=== PATIENT | male | born 1970 | race Caucasian/White ===

== ENCOUNTER 2017-07-20 09:21 | Emergency (ER) | payer MEDICAID, SELFPAY ==
[2017-07-20 09:22] VITALS: BP 177/102; PULSE 93; RESP 14; TEMP 36.9; O2SAT 99; BMI 34.5
--- NOTE | 2017-07-20 09:50 | ED.VISSUMM ---
- ER Visit Summary Date of Service: 07/20/17 Chief Complaint: Nausea and vomiting in the morning only for a couple of months now complaining of right upper quadrant pain and right scapular pain History of Present Illness: The patient is a 46 M who has a past medical history of diabetes ?15 years, hypertension, hypertriglyceridemia and remote history of pancreatitis. He has had intermittent nausea and vomiting in the morning only for the past 2-3 months. He has not noted any blood or coffee grounds in his emesis. His last bowel movement was 3 days ago. He denies weight gain or weight loss. He has had intermittent night sweats. He denies any arthralgias, myalgias or bone pain. He has complained of right scapular pain and right upper quadrant pain the past couple of days. He last ate 2 hours ago and had ranch dressing on his salad. He does not recall his last A1c level. He states he checks his blood sugar 6-7 times a day. He reports intermittent dark urine. Significant other states he had blood in his urine approximately 1 month ago. There is no history of renal ureterolithiasis. He denies any ocular, visual or auditory symptoms. He denies any cardiac or respiratory symptoms. He denies polyuria, polydipsia or polyphagia. There is no family history of biliary disease. He has no history of hepatitis. Thought pancreatitis that was diagnosed 10 years ago was secondary to high triglycerides, 7500+ Physical Examination: Vital signs remarkable for blood pressure 177/102. Vital signs are otherwise unremarkable. BMI is 34.6. HEENT exam is remarkable dry mucosa. Heart is regular without murmur, gallop or rub. S1 and S2 are normal. Lungs are clear to auscultation with good movement of air bilaterally. Abdomen is remarkable for right upper quadrant pain with equivocal clinical Hui sign. There is no evidence of incarcerated hernia. There are no dermatologic lesions noted. There is no CVA tenderness noted. There is no pain to palpation of the right shoulder or scapula or pain with movement. Main nerve exam is unremarkable. Please read written note for complete detail. Test Results: CBC is unremarkable. BMP is remarkable glucose of 180 and a diabetic. Hepatic and lipase are unremarkable other than a alkaline phosphatase of 129 which is slightly elevated. UA is remarkable for ketones. Emergency Department Course and Treatment: IV was established she received 1 L normal saline. Because he has history of diabetes for 15 years and this may represent gastroparesis Reglan 10 mg IV push was administered. Because he has right upper quadrant pain with pain referred to his right scapula and reports intolerance to greasy/fried foods a hepatic and lipase were obtained. BMP was obtained to assess BUN/creatinine. Since he ate hours ago ultrasound will be nondiagnostic and reason not ordered. Treatment Plan: Patient reports significant improvement after Reglan. Plan is to discharge with prescription for Reglan and follow-up with PCP. Disposition: Discharged to home Impression: 1. Chronic nausea and vomiting suspect gastroparesis secondary diabetes 2. Hyperglycemia in a type II diabetic 3. Chronic abdominal/right-sided back pain of uncertain etiology 4. History of hypertension 5. History of pancreatitis This note was generated with [employer] dictation software. It may contain incorrect words, spelling, and punctuation that were not noted in review of the chart prior to signing ED Disposition - Plan for ED Patient: Disposition: Home or Assisted Living Chief Complaint: Nausea/Vomiting Instructions: ED Diabetic Gastroparesis Prescriptions: Metoclopramide [Reglan] 10 mg PO 4X/DAY PRN #120 tab PRN Reason: Headache Referrals: Armando Riley MD [Primary Care Provider] - 1 Week Additional Instructions: Your prescription was electronically transmitted to your preferred pharmacy.
[2017-07-20 09:53] LABS: Bacteria 0 SEEN /hpf (None Seen); Mucous, Urine 0 SEEN /hpf (<or=2+); Red Blood Cells-Urine 0 SEEN /hpf (0-5); Squamous Epithelial Cells - UA 0 SEEN /hpf (0-5); White Blood Cells 0 SEEN /hpf (0-5)
[2017-07-20] MEDS: 0.9% Normal Saline 1,000 ML 1000 ML IV (09:54)
[2017-07-20] MEDS: Metoclopramide 10 MG/2 ML Vial IV (09:54)
[2017-07-20 09:56] LABS: Color, Urine Yellow (Yellow); Glucose, Dipstick 50 mg/dl (Normal); Ketone-Dipstick Negative (Negative); Leukocyte Esterase-Dipstick Negative /ul (Negative); Nitrite-Dipstick Negative (Negative); Occult Blood-Urine Negative /ul (Negative); Protein-Dipstick Negative (Negative); Urine Bilirubin Dipstick Negative (Negative); Urine Clarity Clear (Clear); Urine Urobilinogen Normal (Normal)
[2017-07-20 10:13] LABS: AST(SGOT) 27 U/L (15-37); Alanine Aminotransfer ALT/SGPT 33 U/L (16-61); Albumin, Serum 4.1 g/dL (3.2-5.0); Alkaline Phosphatase 129 U/L (45-117); Anion Gap 9 (5-15); BUN 12 mg/dL (7-18); Bilirubin, Direct 0.14 mg/dL (0.00-0.30); Calcium,Total 8.7 mg/dL (8.5-10.1); Chloride 104 mmol/L (98-107); Creatinine, Serum 0.92 mg/dL (0.70-1.30); EST Glomerular Filtration Rate 93 mL/min (>60); Est Glom Filt Rate - Afr Amer 113 mL/min (>60); Globulin 3.4 g/dL (2.2-4.2); Glucose 180 mg/dL (74-106); Lipase 39 U/L (73-393); Protein, Total 7.5 g/dL (6.4-8.2); Sodium Level 140 mmol/L (136-145)
[2017-07-20 10:54] LABS: Absolute Lymphocyte Count 3.67 X10^3/ul (0.83-4.51); Absolute Neutrophil Count 4.7 X10^3/uL (2.0-7.7); Basophil# 0.03 X10^3/uL; Basophil% 0.3 % (0-1); Eosinophil# 0.58 X10^3/uL; Eosinophils% 5.9 % (0-5); Hematocrit 45.2 % (40-54); Hemoglobin 15.5 g/dl (13.0-16.5); Lymphocyte # 3.67 X10^3/ul (4.0); Lymphocyte % 37.6 % (19-41); Mean Corp Hgb Conc 34.3 g/gl (32-36); Mean Corpuscular Hgb 30.8 pg (27.0-32.0); Mean Corpuscular Volume 89.9 fL (80-94); Mean Platelet Vol. 10.7 fl (6.2-12.0); Monocyte# 0.72 X10^3/uL; Monocyte% 7.4 % (0-10); Neutrophil % 48.3 % (47-70); POSITIVE COUNT NO; POSITIVE DIFFERENTIAL NO; POSITIVE MORPHOLOGY NO; Platelet Count 245 K/mm3 (150-450); RBC Distribution Width CV 13.8 % (11.6-14.6); RBC Distribution Width SD 44.8 fl (35.1-43.9); Red Blood Count 5.03 M/mm3 (4.6-6.2); White Blood Count 9.8 K/mm3 (4.4-11.0)
== END 2017-07-20 11:32 | disposition home or self-care (01) ==
PROVIDERS: Emergency Provider Emergency Medicine; Family Provider Internal Medicine; PCP Internal Medicine
DX: R11.2 Nausea with vomiting, unspecified (principal); E11.65 Type 2 diabetes mellitus with hyperglycemia; M54.6 Pain in thoracic spine; R10.11 Right upper quadrant pain; E86.0 Dehydration; I10 Essential (primary) hypertension; E78.1 Pure hyperglyceridemia; E66.9 Obesity, unspecified; Z87.19 Personal history of other diseases of the digestive system; Z68.34 Body mass index [BMI] 34.0-34.9, adult; Z72.0 Tobacco use; Z79.4 Long term (current) use of insulin; Z79.51 Long term (current) use of inhaled steroids; Z79.899 Other long term (current) drug therapy
CPT/HCPCS: 80048; 80076; 81001; 83690; 85025; 96361; 96374; 99283; J7030; A4216

== ENCOUNTER 2017-10-07 17:22 | Outpatient (RCR) | payer MEDICAID, SELFPAY ==
--- NOTE | 2017-10-07 18:59 | HP.PTEVAL ---
Patient's Visit Information SUMIT CARBALLO is a 46 year old M referred to Physical Therapy by Timothy Martinez with a diagnosis of Chronic LBP. Date of Evaluation: 10/07/17 Physical Therapist: Cheikh Cole PT, - Visit Plan Frequency: 2-3x /Week Duration: 4 Weeks Plan: Postural edu, REIL, core stab ex's, Nustep, and HEP - Subjective Subjective: Pt reports a chronic Hx of LBP for about 15 years. Pt reports he has mostly just dealt with it over the years, but notes the pain finally became enough that he had to go to his PCP for care, and eventually to a manufacturing engineer paint. Pt reports he has had injections in his LB once per month for 3 years which really helped, but then his doctor said he has to seek other alternatives before getting an MRI. Pt reports he has numbness all the way down to his ankles. Numbness is intermittent by nature. Occasional sleep diff secondary to pain. 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 Pt reports walking and lying down causes his pain, while standing decreases his pain. 4/10 at rest, 9/10 at worst (moving furniture) - Pain LBP Pain Intensity (Out of 10): 4 Pain Intensity Range: 9 - Objective Neuro: B LE sensation is WNL to light touch. B patellar reflex= 1-/3. MMT: R knee flex= 4-/5. All other B LE= 5/5 throughout. L/S ROM: Pt is limited the most by fwd flex and ext which are both minimally limited. Repeated movements: REIL 10x2, RFIS peripheralized sx's into R knee - Goals Goal 1:: Decrease LBP x 50% to aid with sleep Goal Time Frame: 2-4 Weeks Goal 2:: Increase L/S ROM x 1 grade to aid with IADL's Goal 3:: I with HEP Goal Time Frame: 2-4 Weeks Goal 4:: Decrease F and I of R LE radiculopathy x 25% to aid with IADL's Goal Time Frame: 2-4 Weeks - Rehabilitation Potential Physical Therapy Diagnosis: Pt has LBP, R LE radiculopathy, and sleep diff secondary to R L/S disc derangement Rehabilitation Potential: Good - Anticipated Interventions Patient/Client Instruction: Educate patient on: Condition, Plan of Care For the Purpose of:: To improve self management Therapeutic Exercise to Include: Strength training, Body mechanics, Postural training, Flexibilty training, Active ROM, Dynamic Lumbar Stabilization For the Purpose of:: To decrease pain, To increase ROM, To improve muscle performance and motor function Cryotherapy (ice pack, ice massage): Yes For the Purpose of:: To decrease pain Thank you for the opportunity to evaluate your patient. For Medicare and Medicare HMO plans, please review the plan of care and approve it. It will need to be FAXED BACK to us at [phone] for Medicare purposes. Please let me know if there are questions or concerns regarding this plan of care. Physician Signature: Date:
--- NOTE | 2017-11-24 08:03 | HP.PT.NRP ---
HP - Discharge Summary (1) - Patient Information SUMIT CARBALLO was seen in my office for initial evaluation on 10/07/17. The following Plan of Care was established for this patient: Initial Frequency: 2-3x /Week Initial Duration: 4 Weeks - Anticipated Interventions Patient/Client Instruction: Educate patient on: Condition, Plan of Care For the Purpose of:: To improve self management Therapeutic Exercise to Include: Strength training, Body mechanics, Postural training, Flexibilty training, Active ROM, Dynamic Lumbar Stabilization For the Purpose of:: To decrease pain, To increase ROM, To improve muscle performance and motor function Cryotherapy (ice pack, ice massage): Yes For the Purpose of:: To decrease pain This patient was last seen in our office . Pertinent comments regarding their Physical therapy will appear below: Pt was evaluated for his LBP on the date of 10/07/17. Pt scheduled a f/u appointment on the date of 10/29/17, but no showed for that appointment and has not returned through todays date. Pt is therefore discontinued at this time. At this point I will be discontinuing this patient from physical therapy. I would be happy to see this patient again in the future if found appropriate by the physician. Thank you! Cheikh Cole, PT,
== END 2017-10-07 19:00 | disposition home or self-care (01) ==
LOC: PT 17:22
PROVIDERS: Family Provider Internal Medicine; PCP Internal Medicine; Visit Provider Anesthesiology Pain Medicine
DX: M54.9 Dorsalgia, unspecified (principal); M79.606 Pain in leg, unspecified
CPT/HCPCS: 97110

== ENCOUNTER → 2017-11-03 16:40 | Outpatient (CLI) | payer MEDICAID, SELFPAY | PROVIDERS: Family Provider Internal Medicine; PCP Internal Medicine; Visit Provider Anesthesiology Pain Medicine | DX: M54.9 Dorsalgia, unspecified (principal); M79.606 Pain in leg, unspecified | CPT/HCPCS: 72148 ==

== ENCOUNTER 2017-11-19 09:02 | Emergency (ER) | payer OTHER, MEDICAID, SELFPAY ==
[2017-11-19 09:02] VITALS: BP 120/63; PULSE 68; RESP 16; TEMP 36.4; O2SAT 97; BMI 30.7
[2017-11-19] MEDS: oxyCODONE 5 MG Tablet 10 MG PO (09:31)
--- NOTE | 2017-11-19 09:42 | ED.VISSUMM ---
- ER Visit Summary Date of Service: 11/19/17 Chief Complaint: Bilateral foot and ankle pain History of Present Illness: The patient is a 46 M who presents with pain to both ankles and feet. He is on top of a cement truck when he fell. He landed on both feet. He has pain in both these areas. He denies any head trauma or LOC. He denies any back pain at this time. He has never had any foot or ankle surgery or fractures previously. He took nothing for. This occurred about 1 hour ago. Physical Examination: Vital signs are reviewed. Bilateral foot and ankle exam reveals tenderness diffusely on both ankles and both feet. He does have 2+ pulses. He has decreased range of motion secondary to the pain. There is no knee or hip pain upon palpation. Test Results: X-rays of the bilateral ankles and feet reveal a right distal tibial fracture with articular extension. There are bilateral calcaneal fractures Emergency Department Course and Treatment: Was given oxycodone as well as subcutaneous morphine. I put posterior splints on each leg. I discussed with social work and we will get the patient a wheelchair, shower chair and bedside commode since he has nonweightbearing on each leg. Patient will be discharged to follow-up with Worker's Comp. as well as orthopedics. Treatment Plan: [] Disposition: Discharge Impression: Bilateral calcaneal fractures, right distal tibial fracture This note was generated with [employer] dictation software. It may contain incorrect words, spelling, and punctuation that were not noted in review of the chart prior to signing ED Disposition - Plan for ED Patient: Chief Complaint: Trauma Referrals: Armando Riley MD [Primary Care Provider] -
--- NOTE | 2017-11-19 10:22 | NURSING ---
CALLED [facility] FOR TESTING
[2017-11-19] MEDS: morphine 8 MG/ML Syringe SC ×2 (11:08→12:42)
[2017-11-19 11:09] VITALS: BP 143/77; PULSE 88; RESP 16; O2SAT 98
--- NOTE | 2017-11-19 11:18 | ED.DEP ---
ED Disposition - Plan for ED Patient: Disposition: Home or Assisted Living Chief Complaint: Trauma Instructions: ED Fx Ankle General Prescriptions: Oxycodone HCl/Acetaminophen [Percocet 5/325] 1 tab PO Q6H PRN PRN 4 Days #16 tab PRN Reason: Pain Referrals: Armando Riley MD [Primary Care Provider] -
--- NOTE | 2017-11-19 11:21 | CM.ED ---
CM referral for DME supplies related to new injury. Patient states he is temporarily living with his [id number]. He is moving into a new home on . Both homes are one story homes. Patient will be non-weightbearing to both legs. He has no DME at this time. Script faxed to [facility] for standard wheelchair, bedside commode, and shower chair. No further needs identified at this time. Patient will follow-up with provider for further DME needs as he becomes weightbearing. Call placed to patient's employer. Received phone number for third-republican liaison, Kye Meadows, at [phone]. Upon calling, I was informed the door to door sales representative will return to office at noon and return my call. Patient updated. Family states understanding that we will assist with wheelchair into car, but they will have to rock picker DME supplies from [facility] on their way home. Patient and family are agreeable with this plan. Awaiting return call from Workers' [employer] third republican door to door sales representative.
--- NOTE | 2017-11-19 12:38 | CM.ED ---
Athletics Teacher from [employer] workers' comp, Kye Meadows, states that he needs C9 form completed and needs to interview employer and employee until approval. Faxed clinicals and C9 form. He states, if case is approved, they will refund cost of supplies. Call placed to [facility] to inform them to bill [facility] for now. Patient and family updated and states they will shrimp picker DME on their way home.
[2017-11-19 12:58] VITALS: BP 124/84; PULSE 79; RESP 18; O2SAT 97
--- NOTE | 2017-11-22 10:02 | CM.ED ---
Call received from patient's significant other, Enrrique Verdugo. She states that she received a call from worker's comp indicating that they have not yet received the C9 form. I re-faxed information and placed a call to Kye Meadows, with patient's employer's third libertarian liaison. He states they have everything they need. I requested that he call the patient and S.O. to answer any questions. He states he will do so. Faxed C9 to [facility]. Called to verify they need no other information at this time. Ramonita, from [facility], confirms they have all they need. Enrrique tells me they are interested in getting a slide board and wheelchair ramp. She has been in contact with patient's PCP and tells me they are writing a script for this new DME. Updated Enrrique on plan and that she will receive a call from Kye Meadows regarding coverage. Enrrique denies further questions or needs at this time.
--- NOTE | 2017-11-22 10:10 | CM.ED ---
Call received from patient's significant other, Brigitte Verdugo. She states that she received a call from worker's comp indicating that they have not yet received the C9 form. I re-faxed information and placed a call to Kye Meadows, with patient's employer's third democrat liaison. He states they have everything they need. I requested that he call the patient and S.O. to answer any questions. He states he will do so. Faxed C9 to [facility]. Called to verify they need no other information at this time. Ramonita, from [facility], confirms they have all they need. Brigitte tells me they are interested in getting a slide board and wheelchair ramp. She has been in contact with patient's PCP and tells me they are writing a script for this new DME. Updated Brigitte on plan and that she will receive a call from Kye Meadows regarding coverage. Brigitte denies further questions or needs at this time.
== END 2017-11-19 12:58 | disposition home or self-care (01) ==
PROVIDERS: Emergency Provider Emergency Medicine; Family Provider Internal Medicine; PCP Internal Medicine
DX: S92.002A Unspecified fracture of left calcaneus, initial encounter for closed fracture (principal); S92.001A Unspecified fracture of right calcaneus, initial encounter for closed fracture; S82.301A Unspecified fracture of lower end of right tibia, initial encounter for closed fracture; J44.9 Chronic obstructive pulmonary disease, unspecified; E11.9 Type 2 diabetes mellitus without complications; I10 Essential (primary) hypertension; Z72.0 Tobacco use; Z79.4 Long term (current) use of insulin; Z79.51 Long term (current) use of inhaled steroids; Z79.899 Other long term (current) drug therapy; W17.89XA Other fall from one level to another, initial encounter; Y93.89 Activity, other specified; Y92.89 Other specified places as the place of occurrence of the external cause; Y99.0 Civilian activity done for income or pay
CPT/HCPCS: 29515; 73610; 73630; 96372; 99283

== ENCOUNTER → 2017-11-25 10:48 | Outpatient (CLI) | payer OTHER, SELFPAY ==
--- NOTE | 2017-11-25 10:58 | CT_ITS ---
STUDY: CT RIGHT ANKLE WITHOUT CONTRAST REASON FOR EXAM: Male, 46 years old. Calcaneal fracture RADIATION DOSAGE (If Supplied By Facility): CTDIvol = ( 15.35 ) mGy, DLP = ( 323.06 ) mGycm TECHNIQUE: Thin section transaxial imaging of the ankle was obtained, with sagittal and coronal reconstructed images. Individualized dose optimization techniques were used for this CT. COMPARISON: Right ankle films 11/19/2017 FINDINGS: There is an intra-articular relatively nondisplaced fracture of the distal tibia. There is a small avulsion fracture from the distal fibula. There is a nondisplaced fracture along the medial aspect of the talar dome. There is a significantly comminuted fracture of the calcaneus. There is anterior extension into the calcaneal cuboid joint, involvement of the subtalar joint with significant impaction in this region, as well as fracture through the posterior calcaneus. Normal navicular-cuneiform, cuneiform tarsal bones and intercuneiform articulations. Normal tarsometatarsal articulations and visualized metatarsi. There is diffuse soft tissue edema. CT/Extremity Lower without Contra IMPRESSION: Markedly comminuted and impacted calcaneal fracture. Nondisplaced fracture along the tibial aspect of the talar dome. Fractures of the distal tibia and fibula, without significant displacement. Electronically Signed: Joe Emerson DO at 9:45 EDT Tel , Service support ,
--- NOTE | 2017-11-25 11:10 | CT_ITS ---
STUDY: CT LEFT ANKLE REASON FOR EXAM: Male, 46 years old. Calcaneal fracture RADIATION DOSAGE (If Supplied By Facility): CTDIvol = ( 15.35 ) mGy, DLP = ( 323.06 ) mGycm TECHNIQUE: Thin section transaxial imaging of the ankle was obtained, with sagittal and coronal reconstructed images. Individualized dose optimization techniques were used for this CT. COMPARISON: No comparison studies are available of the left foot. Comparison is made with right foot CT, same date FINDINGS: There is a comminuted fracture of the calcaneus. The fracture involves the anterior process of the calcaneus with extension into the calcaneal cuboid joint, fractures of the mid calcaneus with extension into the subtalar joint, and fractures of the posterior calcaneus. The talus is intact. No distal tibial or fibular fractures. No additional fractures are seen. Normal visualized tibiotalar, subtalar, talonavicular, calcaneocuboid, tarsal and tarsometatarsal articulations. Normal metatarsi. There is diffuse soft tissue edema. CT/Extremity Lower without Contra IMPRESSION: Significantly comminuted calcaneal fracture. Electronically Signed: Joe Emerson DO at 9:41 EDT Tel , Service support ,
== END ==
PROVIDERS: Family Provider Internal Medicine; PCP Internal Medicine; Visit Provider Orthopaedic Surgery
DX: S92.011A Displaced fracture of body of right calcaneus, initial encounter for closed fracture (principal); S92.012A Displaced fracture of body of left calcaneus, initial encounter for closed fracture; S82.54XA Nondisplaced fracture of medial malleolus of right tibia, initial encounter for closed fracture
CPT/HCPCS: 73700

== ENCOUNTER 2018-06-23 15:30 | Outpatient (RCR) | payer OTHER, SELFPAY ==
--- NOTE | 2018-03-01 17:18 | HP.PTEVAL_ITS ---
Patient's Visit Information SUMIT CARBALLO is a 47 year old M referred to Physical Therapy by Ramy Dickinson with a diagnosis of CLOSED DISPLACED PILON TIBIA WITH ROUTINE HEALING. Date of Evaluation: 03/01/18 Physical Therapist: Mohsen Gomes PT, Cert MDT, OCS - Visit Plan Frequency: 2x /Week Duration: 6 Weeks Plan: WBAT WITH CAM BOOTS WITH WALKER. INTAILLY WBAT WITH WALKER ll BARS,INTIATE ROM ,STRENGTHNING ANKLE- EX''S PROGRESS WITH WB EX'S WITHOUT CAM BOOTS PER MD ORDER. VASO FOR EDEMA - Subjective Findings: This 47 y/o male presents to physical therapy closed displaced pilon fracture of right tibia.Patient DOI Nov 19 on [employer] truck slipped on grease fell 12 feet on bilateral feet. Patient had immediate pain,ER at [facility] x-rays ,reffered to othopedics [place]. Reffererd to [facility] orthopedics DR Dickinson x-rays showed pilon fracture with calacaneous and and right tibia ,thus did ORIF right ankle about 7weeks ago. But ,Dr wei fx to see if heals on own . Patient place in CAM boots with NWB 2 months w/c level and transfers with side board and has bedside commode..Seen 2weeks ago ordered standard walker with orders to be WBAT WITH Cam boots.Patient has been trying to walk min with walker.Patient had x-rays heels which is healing slowly. Patient reguired asssit with ADL'S and does all cooking. Patient has ramp for W/C.Plan to follow up being [facility] x- rays of heels to deternmine progression. Patient has limiation with gait and tranfers due to be NWB with progression to WBAT. Pateint condition impairs QOL function and return to job demands. Patient has some parathesia and swelling in feet gets worse as day goes on.Surgery on heel is to determine after x-rays when patient sees MD in March. VOCATION: [employer]. SOCAIL: - Pain Bilateral Ankle Pain Intensity (Out of 10): 7 Pain Intensity Range: 10 - Objective POSTURE: mild foward posture. GAIT: ambulated in ll bars 8 'x1 with CAM boots and standard walker with min assistance decrease step length unteady. BALANCE: fair with fww. NEURO: intact. EDEMA: Right trimalleor 32cm,Left 32.5cm,MET HEA DS right 27cm,left 26cm. AROM: DF R-30 degrees from 0 ,L 20 degrees from 0 ,IN/EV R 0 degrees,L- INVERSION 15 degrees,EVERSION 10 degrees,toe motion limited flexion and extension. PALAPTION: tender planterfascia bilateral. MMT: ankle dorsiflexion 3+/5,gastrosoleus 2+/5,posterior tibials and peroneus 3+/5 availble ROM. STAIRS: unable. PROPRIOCEPTION: absent. - Goals Goal 1:: Independant with HEP Goal Time Frame: 6-8 Weeks Goal 2:: pain bilateral ankle 60% or greater to improve function Goal Time Frame: 6-8 Weeks Goal 3:: Patient to ambulate with improve gait pattern community distance with appropriate device. Goal Time Frame: 6-8 Weeks Goal 4:: Patient to improve ankle ROM by 5-10 degrees or greater to improve function with gait. Goal Time Frame: 6-8 Weeks Goal 5:: Patient to improve strength blateral ankle 4-/5 except G-S 3+/5 to improve gait. Goal 6:: Patient improve LFES score by 15-20 points or greater to improve QOL - Rehabilitation Potential Physical Therapy Diagnosis: Patient has multiple complexity issue with right displaced pilon fracture tibia as well as calaneal fracture with ORIF right tibia ,and NWB since Nov 19 for 2 months then when seen 2weeks ago progressed to WBAT with walker and CAM boot. This patient as multiple impairments with ROM.strength,gait ,balance ,ADL'S and return to work. Rehabilitation Potential: Good - Anticipated Interventions Patient/Client Instruction: Educate patient on: Condition, Plan of Care For the Purpose of:: To decrease pain, To increase ROM, To improve ability to perform ADL's, To increase tolerance to activity/condition/position, To improve performance and independence with ADL's, To improve ability of physical actions for home/community/work/leisure, To improve gait and locomotor functions, To improve health of tissue, To decrease soft tissue restriction, To improve endurance, To improve balance, To improve safety with gait, To assume or resume ADL's, To improve ability to perform tasks related to life management Therapeutic Exercise to Include: Strength training, Endurance training, Balance training, Gait and locomotor training, Passive ROM, Active ROM Comment: INTIATE NWB EX'S FOR ROM/STRENGTHENING BILATERAL ANKLE For the Purpose of:: To decrease pain, To increase ROM, To improve muscle performance and motor function, To improve ability to perform ADL's, To increase tolerance to activity/condition/position, To improve ability of physical actions for home/community/work/leisure, To improve health of tissue, To decrease soft tissue restriction, To increase flexibility/ROM, To improve endurance, To improve balance, To improve safety with gait, To improve ability to perform tasks related to life management, To improve tolerance to ADL's Cryotherapy (ice pack, ice massage): Yes Thermo therapy (hot pack): Yes Vasopneumatic device: Yes For the Purpose of:: To decrease pain, To improve nutrient delivery to tissue, To increase oxygenation perfusion, To improve gait and locomotor functions, To decrease soft tissue restriction, To increase flexibility/ROM Thank you for the opportunity to evaluate your patient. For Medicare and Medicare HMO plans, please review the plan of care and approve it. It will need to be FAXED BACK to us at [phone] for Medicare purposes. For Medicare only, by signing this I certify the plan of care. Please let me know if there are questions or concerns regarding this plan of care. Physician Signature: Date:
--- NOTE | 2018-06-01 17:01 | HP.PTREVAL_ITS ---
Ramy Dickinson, It has been my pleasure to treat SUMIT CARBALLO over the last 26 visits for CLOSED DISPLACED PILON TIBIA WITH ROUTINE HEALING. Please see the progress note below for an update on the physical therapy plan of care! Subjective: Patient reports being sore from last session. Objective/Function: POSTURE: slight pes planus. EDEMA: trimalleolar joint line 29.5 cm ,NCP head rigt 25.5cm,left 25 CM. GAIT: ambulates with straight cane community distance with improve gait pattern. 2 point gait. AMBULATES- no cane slow feet flat slow tresa mild unsteady. MMT: anterior tibials 4/5,perneous/posterior Tib 4-/5,G-S 3/5. PROPRIOCEPTION: fair- difficulty SLS. BALANCE: good-. PATIENT HAS PROGRESSED WELL WITH GAIT USING CANE WITH BALANCE GOOD-,DECREASE STRENGTH G-S UNABLE TO DO CALF RAISE WITHOUT SUPPORT,STAIRS ONE STEP AT A TIME WITH CANE RAIL,EDEMA IMPROVED ,PROPRIOCEPTION IMPAIRED UNABLE TO SLS Plan Plan: CONT WITH POC INTERVENTON 3WEEK FOR 10 visits End date 06/12/18. WBAT WITH WALKER WITH SHOES ,STRENGTHNING /ROMANKLE- EX''S ,HIP/QUAD/HAMS ,GAIT ,BALANCE AND PROPRIOCEPTION NORM. VASO FOR EDEMA Goals Goal 1:: Independant with HEP Goal Time Frame: 6-8 Weeks Goal 2:: pain bilateral ankle 60% or greater to improve function Goal Time Frame: 6-8 Weeks Goal 3:: Patient to ambulate with improve gait pattern community distance with appropriate device. Goal Time Frame: 6-8 Weeks Goal 4:: Patient to improve ankle ROM by 5-10 degrees or greater to improve func tion with gait. Goal Time Frame: 6-8 Weeks Goal 5:: Patient to improve strength blateral ankle 4-/5 except G-S 3+/5 to improve gait. Goal 6:: Patient improve LFES score by 15-20 points or greater to improve QOL Anticipated Interventions Patient/Client Instruction: Educate patient on: Condition, Plan of Care For the Purpose of:: To decrease pain, To increase ROM, To improve ability to perform ADL's, To increase tolerance to activity/condition/position, To improve performance and independence with ADL's, To improve ability of physical actions for home/community/work/leisure, To improve gait and locomotor functions, To improve health of tissue, To decrease soft tissue restriction, To improve endurance, To improve balance, To improve safety with gait, To assume or resume ADL's, To improve ability to perform tasks related to life management Therapeutic Exercise to Include: Strength training, Endurance training, Balance training, Gait and locomotor training, Passive ROM, Active ROM Comment: INTIATE NWB EX'S FOR ROM/STRENGTHENING BILATERAL ANKLE For the Purpose of:: To decrease pain, To increase ROM, To improve muscle performance and motor function, To improve ability to perform ADL's, To increase tolerance to activity/condition/position, To improve ability of physical actions for home/community/work/leisure, To improve health of tissue, To decrease soft tissue restriction, To increase flexibility/ROM, To improve endurance, To improve balance, To improve safety with gait, To improve ability to perform tasks related to life management, To improve tolerance to ADL's Cryotherapy (ice pack, ice massage): Yes Thermo therapy (hot pack): Yes Vasopneumatic device: Yes For the Purpose of:: To decrease pain, To improve nutrient delivery to tissue, To increase oxygenation perfusion, To improve gait and locomotor functions, To decrease soft tissue restriction, To increase flexibility/ROM Please do not hesitate to contact me at [phone] by phone or if you have questions or concerns regarding this new plan of care! Sincerely, Mohsen Gomes, PT, Cert MDT, OCS
--- NOTE | 2018-06-01 17:04 | HP.PTREVAL ---
Ramy Dickinson, It has been my pleasure to treat SUMIT CARBALLO over the last 26 visits for CLOSED DISPLACED PILON TIBIA WITH ROUTINE HEALING. Please see the progress note below for an update on the physical therapy plan of care! Subjective: Patient reports being sore from last session. Objective/Function: POSTURE: slight pes planus. EDEMA: trimalleolar joint line 29.5 cm ,NCP head rigt 25.5cm,left 25 CM. GAIT: ambulates with straight cane community distance with improve gait pattern. 2 point gait. AMBULATES- no cane slow feet flat slow tresa mild unsteady. MMT: anterior tibials 4/5,perneous/posterior Tib 4-/5,G-S 3/5. PROPRIOCEPTION: fair- difficulty SLS. BALANCE: good-. PATIENT HAS PROGRESSED WELL WITH GAIT USING CANE WITH BALANCE GOOD-,DECREASE STRENGTH G-S UNABLE TO DO CALF RAISE WITHOUT SUPPORT,STAIRS ONE STEP AT A TIME WITH CANE RAIL,EDEMA IMPROVED ,PROPRIOCEPTION IMPAIRED UNABLE TO SLS Plan Plan: CONT WITH POC INTERVENTON 3WEEK FOR 10 visits End date 06/12/18. WBAT WITH WALKER WITH SHOES ,STRENGTHNING /ROMANKLE- EX''S ,HIP/QUAD/HAMS ,GAIT ,BALANCE AND PROPRIOCEPTION NORM. VASO FOR EDEMA Goals Goal 1:: Independant with HEP Goal Time Frame: 12-16 Weeks Goal 2:: pain bilateral ankle 60% or greater to improve function Goal Time Frame: 12-16 Weeks Goal 3:: Patient to ambulate with improve gait pattern community distance with appropriate device. Goal Time Frame: 12-16 Weeks Goal 4:: Patient to improve ankle ROM by 5-10 degrees or greater to improve function with gait. Goal Time Frame: 12-16 Weeks Goal 5:: Patient to improve strength blateral ankle 4-/5 except G-S 3+/5 to improve gait. Goal Time Frame: 12-16 Weeks Goal 6:: Patient improve LFES score by 15-20 points or greater to improve QOL Goal Time Frame: 12-16 Weeks Anticipated Interventions Patient/Client Instruction: Educate patient on: Condition, Plan of Care For the Purpose of:: To decrease pain, To increase ROM, To improve ability to perform ADL's, To increase tolerance to activity/condition/position, To improve performance and independence with ADL's, To improve ability of physical actions for home/community/work/leisure, To improve gait and locomotor functions, To improve health of tissue, To decrease soft tissue restriction, To improve endurance, To improve balance, To improve safety with gait, To assume or resume ADL's, To improve ability to perform tasks related to life management Therapeutic Exercise to Include: Strength training, Endurance training, Balance training, Gait and locomotor training, Passive ROM, Active ROM Comment: INTIATE NWB EX'S FOR ROM/STRENGTHENING BILATERAL ANKLE For the Purpose of:: To decrease pain, To increase ROM, To improve muscle performance and motor function, To improve ability to perform ADL's, To increase tolerance to activity/condition/position, To improve ability of physical actions for home/community/work/leisure, To improve health of tissue, To decrease soft tissue restriction, To increase flexibility/ROM, To improve endurance, To improve balance, To improve safety with gait, To improve ability to perform tasks related to life management, To improve tolerance to ADL's Cryotherapy (ice pack, ice massage): Yes Thermo therapy (hot pack): Yes Vasopneumatic device: Yes For the Purpose of:: To decrease pain, To improve nutrient delivery to tissue, To increase oxygenation perfusion, To improve gait and locomotor functions, To decrease soft tissue restriction, To increase flexibility/ROM Please do not hesitate to contact me at [phone] by phone or if you have questions or concerns regarding this new plan of care! Sincerely, Mohsen Gomes, PT, Cert MDT, OCS
--- NOTE | 2018-08-24 14:07 | HP.PTDCSUM ---
HP - PT D/C Summary It has been my pleasure to treat SUMIT CARBALLO under orders from Ramy Dickinson, for the diagnosis of CLOSED DISPLACED PILON TIBIA WITH ROUTINE HEALING for a total of 33 visit(s). Discharge Date: 08/24/18 Please see the following information for a summary of their discharge status. - Subjective Subjective: Seen DR Henriquez Plans to do FCE . Patient had x-rays bilateral ankles. Patient stated swelling is worse as day goes on. - Pain Bilateral Ankle Pain Intensity (Out of 10): 4 - Objective Objective/Function: POSTURE: mild foward posture. FRONTAL PLAN MECHANICS: slight pes planus ,toes out. EDEMA: trimalellor joint line right 32 cm right,left 31 cm. GAIT: ambulates with cane antalgic gait 2point tresa slow tresa decrease stance time right than. BALANCE: good - with cane. STAIRS: ascend/descend 12 steps with cane rail. AROM: DF 5 degrees from 0 right,left 0 degrees ,eversion right 0 degrees,left 5 degrees,PF 45 degrees right,left 60 degrees,inversion right 10 degrees,20 degrees left. MMT: anterior tibials 4-/5 ,plantarflexion 3/5,perneous/posterior tibials 4-/5 - Goals Goal 1:: Independant with HEP Goal 2:: pain bilateral ankle 60% or greater to improve function Goal 3:: Patient to ambulate with improve gait pattern community distance with appropriate device. Goal 4:: Patient to improve ankle ROM by 5-10 degrees or greater to improve function with gait. Goal 5:: Patient to improve strength blateral ankle 4-/5 except G-S 3+/5 to improve gait. Goal 6:: Patient improve LFES score by 15-20 points or greater to improve QOL - Plan Plan: FCE per Patient from - D/C Information If there are questions or concerns regarding this patient's physical therapy, please feel free to call me at [phone]. Thank you for the referral of this patient. Sincerely, Mohsen Gomes, PT, Cert MDT, OCS
== END 2018-06-23 19:00 | disposition home or self-care (01) ==
LOC: PT 15:30
PROVIDERS: Family Provider Internal Medicine; PCP Internal Medicine
DX: S82.871D Displaced pilon fracture of right tibia, subsequent encounter for closed fracture with routine healing (principal)
CPT/HCPCS: 97016; 97110; 97116; 97163; 97530

== ENCOUNTER 2018-10-20 19:18 | Emergency (ER) | payer MEDICAID, SELFPAY ==
[2018-10-20 19:19] VITALS: BP 169/101; PULSE 90; RESP 18; TEMP 36.7; O2SAT 94; BMI 35.2
--- NOTE | 2018-10-20 19:58 | ED.VISSUMM ---
- ER Visit Summary Date of Service: 10/20/18 Chief Complaint: Acute on chronic right knee pain. History of Present Illness: The patient is a 47 M history of diabetes, reflux and hypertension. A year or so ago patient had a fall and had a right ankle fracture which was repaired orthopedically with plates and screws at [facility]. He also is believed to have a right knee meniscal tear but has never had an MRI of that. He was moving around in bed on Wednesday and said he had sudden pain in his right knee. No fall. No injury this time or trauma this time. Says is uncomfortable to walk or move. Denies any fever or redness. Patient states he has been using Aleve for pain. Physical Examination: Middle-aged male. No acute distress. Vital signs stable and afebrile. HEENT exam unremarkable. Lungs clear to auscultation. Heart regular rhythm no murmur. Abdomen soft nontender. Extremities moves all 4. Neurovascular intact. Well-healed surgical incision on his right ankle anteriorly. The right foot is minimally swollen he states that is chronic. DP pulses intact. Right foot is neurovascularly intact. Right hip is nontender nonswollen. No redness. The right knee he is able to do flexion extension is discomfort with flexion. There is no obvious effusion. His ACL and PCL are intact. As are his LCL and MCL. He is able to extend his knee. The quadriceps patellar tendon and infrapatellar tendon are intact. There is no gross bony deformity. Neurologically is awake and alert. Test Results: None Emergency Department Course and Treatment: I discussed with the patient that he may or may not have a meniscal tear. He had no significant trauma at this time. He does not need any imaging today. He needs to follow-up as an outpatient center may need an MRI. Continue his Aleve. Time I did write for a limited amount of [place]. Treatment Plan: Ice and elevate his right knee. Aleve for inflammation and pain. Limited [place]. Follow-up with his orthopedic surgeon. Disposition: Discharge Impression: Acute on chronic right knee pain with a history of a possible meniscal tear. This note was generated with [employer] dictation software. It may contain incorrect words, spelling, and punctuation that were not noted in review of the chart prior to signing ED Disposition - Plan for ED Patient: Referrals: Armando Riley MD [Primary Care Provider] -
--- NOTE | 2018-10-20 20:03 | DCINST.ED_ITS ---
ED Disposition - Plan for ED Patient: Disposition: Home or Assisted Living Instructions: KNEE PAIN, Uncertain Cause Prescriptions: Hydrocodone/Acetaminophen [[place] 7.5-325 Tablet] 1 ea PO 4X/DAY PRN PRN 4 Days #14 tab PRN Reason: Pain Prescription Printed Referrals: Kye Hannah DO [STAFF PHYSICIAN] - As soon as possible Additional Instructions: Ice and elevate your knee. Continue the Aleve along with limited [place]. Follow-up with your orthopedic surgeon either Dr. Kye Hannah or Dr. Dickinson
[2018-10-20] MEDS: HYDROcodone Bitartrate/Apap 5/325 Tablet PO (20:14)
[2018-10-20 20:22] VITALS: BP 137/107
== END 2018-10-20 20:25 | disposition home or self-care (01) ==
LOC: ED 20:20
PROVIDERS: Emergency Provider Emergency Medicine; Family Provider Internal Medicine; PCP Internal Medicine
DX: M25.561 Pain in right knee (principal); G89.29 Other chronic pain; I10 Essential (primary) hypertension; E11.9 Type 2 diabetes mellitus without complications; K21.9 Gastro-esophageal reflux disease without esophagitis; Z79.4 Long term (current) use of insulin; Z79.899 Other long term (current) drug therapy; Z72.0 Tobacco use
CPT/HCPCS: 99283

== ENCOUNTER 2021-05-29 08:17 | Emergency (ER) | payer MEDICAID, SELFPAY ==
[2021-05-29 08:17] VITALS: BP 191/128; PULSE 97; RESP 18; TEMP 36.6; O2SAT 99; BMI 37.2
--- NOTE | 2021-05-29 08:29 | EDS_ITS ---
HPI History of Present Illness Chief Complaint: Dental Narrative Narrative: Patient presents with his because of left lower jaw pain and facial swelling from a carious tooth. He states that he has not seen a dentist in a few years. He was in the process of getting an implant in his left upper jaw when his dentist moved to [place] and he never finished. He noticed facial swelling this morning in his left lower jaw. He has been having dental pain in his first molar is has been applying Orajel. Quite frankly, he states he is here for an antibiotic to not got any infection. He is a smoker. He denies any fevers or chills. No other symptoms. No difficulty breathing. No problems swallowing. His symptoms started last evening. [facility] Medical History Diabetes Hypertension Home Medications albuterol sulfate [Ventolin Hfa (SP)] 1 puff INHALATION Q4H PRN PRN 07/20/17 [History Last Taken Unknown] amlodipine 10 mg PO DAILY 07/20/17 [History Last Taken Unknown] insulin aspart U-100 [Novolog Flexpen (BKC)] 6 - 7 units SUBCUT TIDCM 07/20/17 [History Last Taken Unknown] insulin glargine [Lantus] 40 - 42 unit SQ BID 07/20/17 [History Last Taken Unknown] lisinopril 40 mg PO DAILY 07/20/17 [History Last Taken Unknown] omeprazole 20 mg PO BID 07/20/17 [History Last Taken Unknown] pramipexole [Mirapex] 0.125 mg PO QHS 07/20/17 [History Last Taken Unknown] simvastatin 40 mg PO QHS 07/20/17 [History Last Taken Unknown] oxycodone-acetaminophen 1 tab PO Q6H PRN PRN 4 Days #16 tab 11/19/17 [Rx Last Taken Unknown] clindamycin HCl [Cleocin HCl] 300 mg PO Q6H #40 cap 05/29/21 [Rx Last Taken Unknown] Allergy/AdvReac Type Severity Reaction Status Date / Time No Known Allergies Allergy Verified 05/29/21 08:19 Social History Smoking Status: Current every day smoker tobacco type: cigarettes ROS ROS ED ROS Narrative Constitutional: No fever, no chills. HEENT: No sore throat. No neck pain. No loss of vision. No rhinorrhea. Left dental pain, pain and swelling left lower jaw. Cardiovascular: No chest pain. No palpitations. No pedal edema. Respiratory: No cough, no shortness of breath. Abdominal: No abdominal pain. No nausea. No vomiting. Genitourinary: No dysuria. No hematuria. Musculoskeletal: No myalgias. No arthralgias. Neurologic: No headaches. No dizziness. No lightheadedness. Skin: No rash. No change in color. Psychiatric: No depression. No anxiety. EXAM Physical Exam Narrative Exam Narrative: Afebrile. Vital signs noted. HEENT: Normocephalic. Atraumatic. PERRL, EOMI. Neck soft and supple. No point tenderness or step off. Multiple carious teeth, especially first molar left lower jaw has large dental carry on the backside of the tooth. No gum swelling. No drooling or trismus. Mild swelling left lower jaw. No external erythema. No woody edema under tongue. Airway patent. Cardiovascular: Regular rate and rhythm. No murmurs, rubs, or gallops appreciated. Respiratory: No tachypnea. Lungs clear to auscultation bilaterally. Gastrointestinal: Abdomen soft, nontender, with normoactive bowel sounds. No rebound or guarding. Neurological: Awake. Alert. Nonfocal, nonlateralizing. Skin: No rash. Normal color. No pallor. Musculoskeletal: No pedal edema. Full range of motion extremities. Const Vital Signs: 05/29/21 08:17 Temperature 97.9 F Temperature Source Temporal Pulse Rate 97 Respiratory Rate 18 Blood Pressure 191/128 H Blood Pressure Mean 149 Pulse Ox 99 Oxygen Delivery Method Room Air MDM MDM MDM Narrative Medical decision making narrative: I do not feel that he has [place] angina. I do not feel that laboratory work or CT imaging is indicated. Smoking cessation was discussed. He will try outpatient antibiotics in the form of clindamycin and follow-up with a dentist as soon as possible. Return instructions to the emergency department were reviewed. Patient and comfortable with the plan. Disposition is discharged home in stable condition. It was noted that his blood pressure is elevated but he has a history of hypertension and takes lisinopril. He is asymptomatic with this in the form of no chest pain or headaches. He was told to keep an eye on his blood pressure. He will take [id number] analgesics as needed. Disposition is discharged home in stable condition. Discharge Plan Triage Chief Complaint: Dental ED Provider: Alex Villanueva Dx/Rx/DC Orders Clinical Impression: Periapical abscess with facial involvement Instructions: ED Dental Pain, ED Dental Cavity, ED Dental Abscess Prescriptions: New clindamycin HCl [Cleocin HCl] 300 mg capsule 300 mg PO Q6H Qty: 40 RF: 0 No Action insulin glargine [Lantus U-100 Insulin] 100 UNIT/ML solution 40 - 42 unit SQ BID RF: 0 simvastatin 40 MG tablet 40 mg PO QHS RF: 0 amlodipine 10 MG tablet 10 mg PO DAILY RF: 0 pramipexole [Mirapex] 0.125 MG tablet 0.125 mg PO QHS RF: 0 omeprazole 20 MG capsule 20 mg PO BID RF: 0 albuterol sulfate [Ventolin HFA] 1 INHALER inhaler 1 puff inhalation Q4H PRN PRN (Reason: Sob &/Or Wheezing) RF: 0 lisinopril 40 MG tablet 40 mg PO DAILY RF: 0 insulin aspart U-100 [Novolog Flexpen U-100 Insulin] 100 UNITS/ML insulin pen 6 - 7 units subcut TIDCM RF: 0 oxycodone-acetaminophen 1 TABLET tablet 1 tab PO Q6H PRN PRN (Reason: Pain) 4 Days Qty: 16 RF: 0 Primary Care Provider: Armando Riley Referrals: Armando Riley MD [Primary Care Provider] - Activity Restrictions/Additional Instructions: See a dentist as soon as possible. Disposition Disposition: Home, Self Care
== END 2021-05-29 08:40 | disposition home or self-care (01) ==
LOC: ED 08:36
PROVIDERS: Emergency Provider Emergency Medicine; PCP Internal Medicine; Visit Provider Emergency Medicine
DX: K04.7 Periapical abscess without sinus (principal); F17.210 Nicotine dependence, cigarettes, uncomplicated
CPT/HCPCS: 99282

== ENCOUNTER 2022-03-12 10:00 | Outpatient (RCR) | payer MEDICAID, SELFPAY ==
--- NOTE | 2021-11-07 15:23 | HP.PTEVAL_ITS ---
Patient's Visit Information SUMIT CARBALLO is a 50 year old M referred to Physical Therapy by CAITLIN MARTINEZ with a diagnosis of RIGHT KNEE PAIN. Date of Evaluation: 11/07/21 Physical Therapist: Mohsen Gomes PT, Cert MDT, OCS - Visit Plan Frequency: 2x /Week Duration: 4 Weeks Plan: PT INTERVETIONS FLEXABILITY QUADS/CALF/HAMSTRINGS ,PRE'S QUADS/HAMS/HIP , ROM KNEE, AND FUNCTIONAL STRENGTHNEING - Subjective This 50 y/o male presents to physical therapy with right knee pain. Patient has h/o calcaneal fracture and tibia ~ 4 years 2018 slipped off cement truck landed on feet. Thus had s/p ORIF right ankle along bilateral pilon fracture. Patient had extensive physical therapy. Most recently ,developed knee pain with general activity seen DR hirsch PT. Patient did not have any x-rays, but has seen [facility] x-rays and MRI which was -. Patient pain global around knee. Described stabbing and burning pain. Aggravating unable to squat /kneeling ,some pain with stairs . MEDS Percocet. Alleviating factors rest. Patient s leeping good. Patient condition affects QOL and function. SOCIAL: . VOCATION: disablity - Pain Right Knee Pain Intensity (Out of 10): 4 Pain Intensity Range: 10 - Objective POSTURE: mild forward posture knee slightly flexed. GAIT: reciprocal pattern mild antalgic gait. PALPATION: unremarkable. NEURO: intact. FLEXABLITY: quads mod limited right. AROM: FLEXION 0-120 degrees right, left 0-140 degrees supine flexion. MMT( peak force): quads 27.8 ,hamstrings 25.9 ,hip flexion 27.8 ,ankle 5/5. STAIRS: one steps at time - Special Tests R Knee Fauzia - Meniscus: Negative R Knee Disco Test - Meniscus: Negative R Knee Shakir - ACL: Negative R Knee Anterior Drawer - ACL: Negative R Knee Valgus - MCL: Negative R Knee Varus - LCL: Negative R Knee Patellar Apprehension - PFS: Positive R Knee Patellar Grind - PFS: Negative - Balance/Special Test Scores Lower Extremity Functional Score: 31 - Goals Goal 1:: Patient to be I with HEP for knee. Goal Time Frame: 4-6 Weeks Goal 2:: Patient normalize gait pattern Goal Time Frame: 4-6 Weeks Goal 3:: Patient to increase strength peak force quads/hams 10 to improve gait Goal Time Frame: 4-6 Weeks Goal 4:: Patient to improve AROM by 10 degrees supine knee flexion to improve stairs Goal Time Frame: 4-6 Weeks Goal 5:: Patient improve LFES score by 5-10 points to improve QOL and function Goal Time Frame: 4-6 Weeks - Rehabilitation Potential Physical Therapy Diagnosis: Patient has right knee pain with decrease ROM ,strength impairs function and ADL's long with contributing factors with h/o falling cement on feet causing pilon fractures and right ankle s/p ORIF thus benefit from skilled PT Rehabilitation Potential: Good - Anticipated Interventions Patient/Client Instruction: Educate patient on: Condition, Plan of Care For the Purpose of:: To decrease pain, To increase ROM, To improve muscle performance and motor function, To improve ability to perform ADL's, To increase tolerance to activity/condition/position, To improve ability of physical actions for home/community/work/leisure, To improve health of tissue, To decrease soft tissue restriction, To increase flexibility/ROM, To prevent re-injury, To improve tolerance to ADL's Therapeutic Exercise to Include: Strength training, Endurance training, Balance training, Flexibilty training, Active ROM Comment: QUADS/HAMS/HIP For the Purpose of:: To decrease pain, To improve nutrient delivery to tissue, To improve muscle performance and motor function, To increase tolerance to activity/condition/position, To improve ability of physical actions for home/community/work/leisure, To decrease soft tissue restriction, To increase flexibility/ROM, To reduce risk of recurrence, To prevent re-injury, To improve tolerance to ADL's Thank you for the opportunity to evaluate your patient. For Medicare and Medicare HMO plans, please review the plan of care and approve it. It will need to be FAXED BACK to us at [phone] for Medicare purposes. For Medicare only, by signing this I certify the plan of care. Please let me know if there are questions or concerns regarding this plan of care. Physician Signature: Date:
--- NOTE | 2022-03-12 10:41 | HP.PTDCSUM ---
It has been my pleasure to treat SUMIT CARBALLO referred by CAITLIN MARTINEZ, with the diagnosis of RIGHT KNEE PAIN for a total of 26 visit(s). Discharge Date: 03/12/22 Please see the following information for a summary of their discharge status. Subjective: Doing okay Right Knee Pain Intensity (Out of 10): 0 % Improvement: 85 Objective/Function: POSTURE: mild forward posture. GAIT: reciprocal pattern. STAIRS: alternating. AROM: 0-130 supine flexion. MMT: (peak force) quads 46.8 ,hamstrings 47.8 Goal 1:: Patient to be I with HEP for knee. Goal Progress: Goal Met Goal 2:: Patient normalize gait pattern Goal Progress: Goal Met Goal 3:: Patient to increase strength peak force quads/hams 10 to improve gait Goal Progress: Goal Met Goal 4:: Patient to improve AROM by 10 degrees supine knee flexion to improve stairs Goal Progress: Goal Met Goal 5:: Patient improve LFES score by 5-10 points to improve QOL and function Goal Progress: Goal Met Plan: D/C Discharge Comments: hap If there are questions or concerns regarding this patient's physical therapy, please feel free to call me at [phone]. Thank you for the referral of this patient. Sincerely, Mohsen Gomes, PT, Cert MDT, OCS Balance/Gait/Functional tests - Balance/Special Test Scores Lower Extremity Functional Score: 55
== END 2022-03-12 19:00 | disposition home or self-care (01) ==
LOC: PT 10:00
PROVIDERS: PCP Internal Medicine
DX: M25.561 Pain in right knee (principal)
CPT/HCPCS: 97110; 97162